=== PATIENT | male | born 1960 | race Caucasian/White ===

== ENCOUNTER 2017-11-14 07:47 | Emergency (ER) | payer MEDICAID ==
[~2017-11-14] VITALS: Ht 167.6 cm; Wt 84.5 kg
[~2017-11-14 07:47] MED LIST: LAC PO; LEVAQUIN LEVA-750 M1 PO; METFORMIN HCL1000 MG PO; MOTRIN600 MG PO; THERAGRAN-M1 TA4 PO; ZES10 PO
[2017-11-14 08:04] VITALS: Ht 167.6 cm; Wt 84.5 kg
[2017-11-14 08:40] VITALS: BP 156/93
== END 2017-11-14 08:40 | disposition home or self-care (01) ==
LOC: ED 07:47
DX: S90.425A Blister (nonthermal), left lesser toe(s), initial encounter (principal); I10 Essential (primary) hypertension; E11.9 Type 2 diabetes mellitus without complications; X58.XXXA Exposure to other specified factors, initial encounter; Y93.89 Activity, other specified; Y92.89 Other specified places as the place of occurrence of the external cause; Y99.8 Other external cause status

== ENCOUNTER 2018-04-20 16:05 | Inpatient (IN) | payer SELFPAY ==
[~2018-04-20] VITALS: Ht 162.6 cm; Wt 72.0 kg
[2018-04-20 16:24] VITALS: Ht 162.6 cm; Wt 72.0 kg
[2018-04-20 17:41] LABS: BASOPHIL % 0.2 % (0-2)
[2018-04-20 17:45] LABS: PLATELET COUNT 706 x10^3mcL (130-400); RED CELL DISTRIBUTION WIDTH 16.5 % (11.5-14.5)
[2018-04-20 17:47] LABS: CALCIUM 8.9 mg/dL (8.5-10.1); CARBON DIOXIDE 26.7 mmol/L (21-32); CREATININE SERUM 1.6 mg/dL (0.7-1.3); POTASSIUM SERUM 4.4 mmol/L (3.5-5.1)
[2018-04-20 17:52] LABS: ALBUMIN 2.1 g/dL (3.4-5.0); BILIRUBIN TOTAL 0.27 mg/dL (0.20-1.00)
[2018-04-20 18:12] LABS: microscopic required? YES; urine erythrocyte TRACE (NEGATIVE)
[2018-04-20] MEDS ORDERED: OMEPRAZOLE20 M4 PO (20:50)
[2018-04-20] MEDS ORDERED: PAROXETINE20 M1 PO (20:51)
[2018-04-20] MEDS ORDERED: SULFAMETH/TRIME1 TA3 PO (20:51)
[2018-04-20 22:05] LABS: MAGNESIUM 1.8 mg/dL (1.8-2.4); PHOSPHOROUS 3.9 mg/dL (2.5-4.9)
[2018-04-20 22:06] LABS: CHOLESTEROL/HDL RATIO 4.7
[2018-04-20 22:14] LABS: FREE T4 1.43 ng/dL (0.76-1.46); FREE THYROXINE INDEX 2.7 ug/dL (1.4-4.5); T4(THYROXINE) 7.2 ug/dL (4.7-13.3)
[2018-04-20 22:20] LABS: T3 TOTAL 0.77 ng/mL
[2018-04-20 22:45] VITALS: BP 122/61
[2018-04-21 01:34] LABS: AMPHETAMINE QUAL UR NONE DETECTED (See below)
[2018-04-21 05:53] VITALS: BP 131/69
[2018-04-21 07:05] LABS: CALCIUM 8.1 mg/dL (8.5-10.1); CREATININE SERUM 1.6 mg/dL (0.7-1.3); POTASSIUM SERUM 4.6 mmol/L (3.5-5.1)
[2018-04-21 08:09] LABS: BASOPHIL % 0.4 % (0-2)
[2018-04-21 08:24] LABS: RED CELL DISTRIBUTION WIDTH 16.9 % (11.5-14.5)
[2018-04-21 09:54] VITALS: BP 133/67
[2018-04-21 11:35] LABS: rbc morphology (normal/abnorm) ABNORMAL (NORMAL)
[2018-04-21 12:14] LABS: PLATELET COUNT 588 x10^3mcL (130-400)
[2018-04-21 12:56] LABS: rbc morphology (normal/abnorm) ABNORMAL (NORMAL)
[2018-04-21 14:52] LABS: BASOPHIL % 0.3 % (0-2)
[2018-04-21 15:01] LABS: RED CELL DISTRIBUTION WIDTH 16.9 % (11.5-14.5)
[2018-04-21 15:38] LABS: PLATELET COUNT 621 x10^3mcL (130-400)
[2018-04-21 16:54] VITALS: BP 136/70
[2018-04-22 05:25] VITALS: BP 147/79
[2018-04-22 06:23] LABS: BASOPHIL % 0.4 % (0-2)
[2018-04-22 06:27] LABS: CALCIUM 8.1 mg/dL (8.5-10.1); CARBON DIOXIDE 24.3 mmol/L (21-32); CHLORIDE SERUM 100 mmol/L (98-107); CREATININE SERUM 1.2 mg/dL (0.7-1.3); GFR1 > 60 mL/min; GLUCOSE SERUM 184 mg/dL (74-106); MAGNESIUM 1.7 mg/dL (1.8-2.4); PHOSPHOROUS 3.2 mg/dL (2.5-4.9); POTASSIUM SERUM 3.9 mmol/L (3.5-5.1); SODIUM SERUM 133 mmol/L (136-145)
[2018-04-22 07:03] LABS: RED CELL DISTRIBUTION WIDTH 17.6 % (11.5-14.5)
[2018-04-22 08:53] LABS: PLATELET COUNT 597 x10^3mcL (130-400)
[2018-04-22 09:40] LABS: IRON 20 ug/dL (65-170); TOTAL IRON BINDING CAPACITY 154 ug/dL (250-450)
[2018-04-22 09:56] LABS: RED BLOOD CELLS 3.11 M/mm3 (4.52-5.90)
[2018-04-22 14:53] LABS: BASOPHIL % 0 % (0-2); RED CELL DISTRIBUTION WIDTH 17.9 % (11.5-14.5)
[2018-04-22 15:02] VITALS: BP 139/71
[2018-04-22 15:44] LABS: ovalocyte/elliptocyte 1+
[2018-04-22 15:45] LABS: rbc morphology (normal/abnorm) ABNORMAL (NORMAL); tear drop cell (dacryocyte) 1+
[2018-04-22 16:57] LABS: PLATELET COUNT 578 x10^3mcL (130-400)
[2018-04-22 18:20] VITALS: BP 137/66
[2018-04-22 19:45] VITALS: BP 127/75
[2018-04-23 04:54] VITALS: BP 132/81
[2018-04-23 08:02] LABS: BILIRUBIN TOTAL 0.3 mg/dL (0.20-1.00); CALCIUM 7.8 mg/dL (8.5-10.1); CARBON DIOXIDE 25.3 mmol/L (21-32); MAGNESIUM 1.5 mg/dL (1.8-2.4); PHOSPHOROUS 3.5 mg/dL (2.5-4.9); POTASSIUM SERUM 4.6 mmol/L (3.5-5.1); TOTAL PROTEIN, SERUM 7.2 g/dL (6.4-8.2)
[2018-04-23 08:03] LABS: ALBUMIN 1.6 g/dL (3.4-5.0)
[2018-04-23 08:24] LABS: BASOPHIL % 0 % (0-2); PLATELET COUNT 561 x10^3mcL (130-400)
[2018-04-23 09:30] VITALS: BP 128/66
[2018-04-23 16:09] LABS: PLATELET COUNT 582 x10^3mcL (130-400); RED CELL DISTRIBUTION WIDTH 17.8 % (11.5-14.5)
[2018-04-23 16:40] LABS: BAND NEUTROPHIL 8 % (0-10); BASOPHIL 0 % (0-2); MONOCYTE 3 % (0-7); SEGMENTED NEUTROPHILS 73 % (37-75); rbc morphology (normal/abnorm) ABNORMAL (NORMAL)
[2018-04-23 16:42] LABS: PLATELET MORPHOLOGY PLATELETS INCREASED
[2018-04-23 20:54] VITALS: BP 111/66
[2018-04-24] VITALS (7 sets, daily range): BP systolic 126–154; BP diastolic 74–80
[2018-04-24 05:48] LABS: BASOPHIL % 0.3 % (0-2)
[2018-04-24 05:51] LABS: BILIRUBIN TOTAL 0.33 mg/dL (0.20-1.00); CALCIUM 7.5 mg/dL (8.5-10.1); CARBON DIOXIDE 23.8 mmol/L (21-32); CREATININE SERUM 2.7 mg/dL (0.7-1.3); MAGNESIUM 1.4 mg/dL (1.8-2.4); PHOSPHOROUS 3.7 mg/dL (2.5-4.9); POTASSIUM SERUM 4.2 mmol/L (3.5-5.1); TOTAL PROTEIN, SERUM 6.6 g/dL (6.4-8.2)
[2018-04-24 05:53] LABS: ALBUMIN 1.5 g/dL (3.4-5.0)
[2018-04-24 06:13] LABS: PLATELET COUNT 445 x10^3mcL (130-400)
[2018-04-24 07:12] LABS: rbc morphology (normal/abnorm) ABNORMAL (NORMAL)
[2018-04-25 00:55] VITALS: BP 148/80
[2018-04-25 04:52] VITALS: BP 156/74
[2018-04-25 07:47] LABS: BASOPHIL % 0.4 % (0-2)
[2018-04-25 07:48] LABS: PLATELET COUNT 448 x10^3mcL (130-400); RED CELL DISTRIBUTION WIDTH 18.8 % (11.5-14.5)
[2018-04-25 07:58] LABS: CARBON DIOXIDE 24.1 mmol/L (21-32); CREATININE SERUM 3.2 mg/dL (0.7-1.3); MAGNESIUM 1.8 mg/dL (1.8-2.4)
[2018-04-25 09:33] VITALS: BP 157/77
[2018-04-25 17:19] LABS: CALCIUM 8.3 mg/dL (8.5-10.1); CARBON DIOXIDE 24.3 mmol/L (21-32); CREATININE SERUM 3.2 mg/dL (0.7-1.3); POTASSIUM SERUM 4.1 mmol/L (3.5-5.1)
[2018-04-25 17:25] LABS: BASOPHIL % 0.5 % (0-2)
[2018-04-25 17:29] LABS: PLATELET COUNT 449 x10^3mcL (130-400); RED CELL DISTRIBUTION WIDTH 18.7 % (11.5-14.5)
[2018-04-25 17:31] VITALS: BP 166/82
[2018-04-25 20:34] VITALS: BP 145/78
[2018-04-26 05:22] VITALS: BP 153/58
[2018-04-26 06:28] LABS: CALCIUM 8.1 mg/dL (8.5-10.1); CARBON DIOXIDE 25.5 mmol/L (21-32); CREATININE SERUM 3.2 mg/dL (0.7-1.3)
[2018-04-26 07:33] LABS: BASOPHIL % 0.2 % (0-2)
[2018-04-26 07:46] LABS: RED CELL DISTRIBUTION WIDTH 17.9 % (11.5-14.5)
[2018-04-26 07:52] LABS: PLATELET COUNT 511 x10^3mcL (130-400)
[2018-04-26 08:53] VITALS: BP 159/81
[2018-04-26 18:43] VITALS: BP 164/81
[2018-04-26 20:57] VITALS: BP 120/75
[2018-04-27 04:42] VITALS: BP 164/84
[2018-04-27 06:55] LABS: BASOPHIL % 0.4 % (0-2)
[2018-04-27 06:57] LABS: CALCIUM 8.1 mg/dL (8.5-10.1); CARBON DIOXIDE 24.7 mmol/L (21-32); CREATININE SERUM 2.7 mg/dL (0.7-1.3); MAGNESIUM 1.7 mg/dL (1.8-2.4); PHOSPHOROUS 3.8 mg/dL (2.5-4.9); POTASSIUM SERUM 3.8 mmol/L (3.5-5.1)
[2018-04-27 07:00] LABS: RED CELL DISTRIBUTION WIDTH 18.8 % (11.5-14.5)
[2018-04-27 07:01] LABS: PLATELET COUNT 475 x10^3mcL (130-400)
[2018-04-27 10:31] VITALS: BP 165/91
[2018-04-27 12:15] VITALS: BP 151/68
[2018-04-27 14:36] VITALS: BP 132/69
[2018-04-27 16:15] VITALS: BP 148/76
[2018-04-27 16:21] LABS: microscopic required? YES; urine erythrocyte TRACE (NEGATIVE)
[2018-04-27 21:22] VITALS: BP 153/74
[2018-04-28 05:46] VITALS: BP 156/78
[2018-04-28 06:06] LABS: BASOPHIL % 0.4 % (0-2)
[2018-04-28 06:32] LABS: ALBUMIN 1.5 g/dL (3.4-5.0); BILIRUBIN TOTAL 0.32 mg/dL (0.20-1.00); CALCIUM 7.7 mg/dL (8.5-10.1); CARBON DIOXIDE 23.7 mmol/L (21-32); CREATININE SERUM 2.5 mg/dL (0.7-1.3); MAGNESIUM 1.6 mg/dL (1.8-2.4); PHOSPHOROUS 3.4 mg/dL (2.5-4.9); POTASSIUM SERUM 3.8 mmol/L (3.5-5.1); TOTAL PROTEIN, SERUM 6.9 g/dL (6.4-8.2)
[2018-04-28 07:11] LABS: PLATELET COUNT 424 x10^3mcL (130-400); RED CELL DISTRIBUTION WIDTH 18.9 % (11.5-14.5)
[2018-04-28 08:54] VITALS: BP 164/82
[2018-04-28 17:12] VITALS: BP 157/74
[2018-04-28 21:10] VITALS: BP 159/75
[2018-04-29 05:39] VITALS: BP 118/79
[2018-04-29 06:18] LABS: BASOPHIL % 0.2 % (0-2)
[2018-04-29 06:40] LABS: PLATELET COUNT 436 x10^3mcL (130-400); RED CELL DISTRIBUTION WIDTH 19.2 % (11.5-14.5)
[2018-04-29 06:46] LABS: CALCIUM 8.2 mg/dL (8.5-10.1); CARBON DIOXIDE 23.6 mmol/L (21-32); CREATININE SERUM 2.2 mg/dL (0.7-1.3); MAGNESIUM 1.7 mg/dL (1.8-2.4); PHOSPHOROUS 3.2 mg/dL (2.5-4.9); POTASSIUM SERUM 3.7 mmol/L (3.5-5.1)
[2018-04-29 08:57] VITALS: BP 147/78
[2018-04-29 17:58] VITALS: BP 164/88
[2018-04-29 20:56] VITALS: BP 167/81
[2018-04-30 05:53] VITALS: BP 168/61
[2018-04-30 06:23] LABS: BILIRUBIN TOTAL 0.29 mg/dL (0.20-1.00); CARBON DIOXIDE 26.5 mmol/L (21-32); CREATININE SERUM 2.1 mg/dL (0.7-1.3); MAGNESIUM 1.8 mg/dL (1.8-2.4); PHOSPHOROUS 3.5 mg/dL (2.5-4.9); POTASSIUM SERUM 3.5 mmol/L (3.5-5.1); TOTAL PROTEIN, SERUM 7.3 g/dL (6.4-8.2)
[2018-04-30 06:52] LABS: ALBUMIN 1.7 g/dL (3.4-5.0)
[2018-04-30 07:12] LABS: BASOPHIL % 0.3 % (0-2)
[2018-04-30 07:14] LABS: PLATELET COUNT 456 x10^3mcL (130-400); RED CELL DISTRIBUTION WIDTH 18.5 % (11.5-14.5)
[2018-04-30 09:18] VITALS: BP 163/84
[2018-04-30 14:10] VITALS: BP 156/62
[2018-04-30 17:46] VITALS: BP 149/76
[2018-04-30 20:25] VITALS: BP 149/80
[2018-05-01 05:01] VITALS: BP 151/80
[2018-05-01 06:33] LABS: ALBUMIN 1.7 g/dL (3.4-5.0); BILIRUBIN TOTAL 0.29 mg/dL (0.20-1.00); CALCIUM 7.9 mg/dL (8.5-10.1); CARBON DIOXIDE 26.9 mmol/L (21-32); MAGNESIUM 1.7 mg/dL (1.8-2.4); PHOSPHOROUS 3.5 mg/dL (2.5-4.9); POTASSIUM SERUM 3.4 mmol/L (3.5-5.1); TOTAL PROTEIN, SERUM 7.2 g/dL (6.4-8.2)
[2018-05-01 08:11] LABS: BASOPHIL % 0.4 % (0-2)
[2018-05-01 08:12] LABS: PLATELET COUNT 496 x10^3mcL (130-400); RED CELL DISTRIBUTION WIDTH 19.4 % (11.5-14.5)
[2018-05-01 09:46] VITALS: BP 156/83
[2018-05-01 18:48] VITALS: BP 149/79
[2018-05-01 20:44] VITALS: BP 146/77
[2018-05-02 05:36] VITALS: BP 163/85
[2018-05-02 06:48] LABS: BASOPHIL % 0.3 % (0-2)
[2018-05-02 07:12] LABS: PLATELET COUNT 525 x10^3mcL (130-400); RED CELL DISTRIBUTION WIDTH 18.8 % (11.5-14.5)
[2018-05-02 07:22] LABS: CALCIUM 8.2 mg/dL (8.5-10.1); CARBON DIOXIDE 26.8 mmol/L (21-32); PHOSPHOROUS 3.5 mg/dL (2.5-4.9); POTASSIUM SERUM 3.4 mmol/L (3.5-5.1)
[2018-05-02 10:00] VITALS: BP 153/82
[2018-05-02 16:24] LABS: microscopic required? YES; urine erythrocyte 1+ (NEGATIVE)
[2018-05-02 17:40] VITALS: BP 140/73
[2018-05-02 21:03] VITALS: BP 129/68
[2018-05-03 05:21] VITALS: BP 149/45
[2018-05-03 07:13] LABS: CALCIUM 8.1 mg/dL (8.5-10.1); CARBON DIOXIDE 27.3 mmol/L (21-32); CREATININE SERUM 2.2 mg/dL (0.7-1.3); MAGNESIUM 1.8 mg/dL (1.8-2.4); PHOSPHOROUS 3.3 mg/dL (2.5-4.9); POTASSIUM SERUM 3.7 mmol/L (3.5-5.1)
[2018-05-03 07:28] LABS: PLATELET COUNT 493 x10^3mcL (130-400); RED CELL DISTRIBUTION WIDTH 19.5 % (11.5-14.5)
[2018-05-03 09:35] VITALS: BP 137/69
[2018-05-03 12:10] LABS: BAND NEUTROPHIL 0 % (0-10); BASOPHIL 0 % (0-2); MONOCYTE 7 % (0-7); SEGMENTED NEUTROPHILS 81 % (37-75)
[2018-05-03 12:11] LABS: PLATELET MORPHOLOGY PLATELETS INCREASED; rbc morphology (normal/abnorm) ABNORMAL (NORMAL); schistocyte (helmet cell) 1+
[2018-05-03 17:42] VITALS: BP 159/85
[2018-05-03 20:52] VITALS: BP 137/74
[2018-05-04 06:04] VITALS: BP 143/79
[2018-05-04 06:52] LABS: PLATELET COUNT 495 x10^3mcL (130-400); RED CELL DISTRIBUTION WIDTH 19.1 % (11.5-14.5)
[2018-05-04 06:56] LABS: CALCIUM 7.6 mg/dL (8.5-10.1); CARBON DIOXIDE 25.3 mmol/L (21-32); CREATININE SERUM 2.1 mg/dL (0.7-1.3); MAGNESIUM 1.6 mg/dL (1.8-2.4); PHOSPHOROUS 3.2 mg/dL (2.5-4.9); POTASSIUM SERUM 3.5 mmol/L (3.5-5.1)
[2018-05-04 08:55] VITALS: BP 126/70
[2018-05-04 11:01] LABS: ATYPICAL LYMPH 2 %; BAND NEUTROPHIL 0 % (0-10); BASOPHIL 0 % (0-2); MONOCYTE 13 % (0-7); PLATELET MORPHOLOGY PLATELETS INCREASED; SEGMENTED NEUTROPHILS 82 % (37-75); rbc morphology (normal/abnorm) ABNORMAL (NORMAL)
[2018-05-04 13:25] LABS: microalbumin:creatinine ratio 67.6 (0.0-30.0)
[2018-05-04 17:28] VITALS: BP 130/70
[2018-05-04 20:43] VITALS: BP 105/58
[2018-05-05 05:44] VITALS: BP 131/72
[2018-05-05 06:39] LABS: RED CELL DISTRIBUTION WIDTH 19.5 % (11.5-14.5)
[2018-05-05 07:12] LABS: CALCIUM 8.1 mg/dL (8.5-10.1); CARBON DIOXIDE 24.2 mmol/L (21-32); CREATININE SERUM 2.2 mg/dL (0.7-1.3); MAGNESIUM 1.8 mg/dL (1.8-2.4); PHOSPHOROUS 3.5 mg/dL (2.5-4.9); POTASSIUM SERUM 3.8 mmol/L (3.5-5.1)
[2018-05-05 08:00] VITALS: BP 130/63
[2018-05-05 12:40] LABS: BAND NEUTROPHIL 3 % (0-10); BASOPHIL 0 % (0-2); MONOCYTE 6 % (0-7); SEGMENTED NEUTROPHILS 80 % (37-75)
[2018-05-05 12:41] LABS: PLATELET MORPHOLOGY PLATELETS INCREASED; rbc morphology (normal/abnorm) ABNORMAL (NORMAL); tear drop cell (dacryocyte) 1+
[2018-05-05 12:53] VITALS: BP 109/60
[2018-05-05 13:55] LABS: PLATELET COUNT 517 x10^3mcL (130-400)
[2018-05-05 16:20] VITALS: BP 119/64
[2018-05-05 20:53] VITALS: BP 132/95
[2018-05-06 04:30] VITALS: BP 128/74
[2018-05-06 07:07] LABS: CALCIUM 7.9 mg/dL (8.5-10.1); CARBON DIOXIDE 26.3 mmol/L (21-32); MAGNESIUM 1.7 mg/dL (1.8-2.4); PHOSPHOROUS 4.1 mg/dL (2.5-4.9); POTASSIUM SERUM 3.8 mmol/L (3.5-5.1)
[2018-05-06 07:35] LABS: RED CELL DISTRIBUTION WIDTH 19.3 % (11.5-14.5)
[2018-05-06 07:36] LABS: PLATELET COUNT 624 x10^3mcL (130-400)
[2018-05-06 08:10] VITALS: BP 128/69
[2018-05-06 10:20] LABS: BAND NEUTROPHIL 11 % (0-10); BASOPHIL 0 % (0-2); MONOCYTE 4 % (0-7); SEGMENTED NEUTROPHILS 65 % (37-75); rbc morphology (normal/abnorm) ABNORMAL (NORMAL)
[2018-05-06 10:21] LABS: PLATELET MORPHOLOGY LARGE PLATELET SEEN
[2018-05-06 12:36] VITALS: BP 126/74
[2018-05-06 16:39] VITALS: BP 137/74
[2018-05-06 20:57] VITALS: BP 127/68
[2018-05-07 05:27] VITALS: BP 153/72
[2018-05-07 07:20] LABS: PLATELET COUNT 590 x10^3mcL (130-400)
[2018-05-07 07:38] LABS: CALCIUM 8.2 mg/dL (8.5-10.1); CARBON DIOXIDE 26.8 mmol/L (21-32); CREATININE SERUM 1.9 mg/dL (0.7-1.3); MAGNESIUM 1.8 mg/dL (1.8-2.4); PHOSPHOROUS 3.5 mg/dL (2.5-4.9); POTASSIUM SERUM 3.9 mmol/L (3.5-5.1)
[2018-05-07 09:07] VITALS: BP 134/73
[2018-05-07 11:39] LABS: BAND NEUTROPHIL 10 % (0-10); BASOPHIL 0 % (0-2); MONOCYTE 7 % (0-7); SEGMENTED NEUTROPHILS 65 % (37-75)
[2018-05-07 11:40] LABS: PLATELET MORPHOLOGY PLATELETS INCREASED; rbc morphology (normal/abnorm) ABNORMAL (NORMAL)
[2018-05-07 16:20] VITALS: BP 120/66
[2018-05-07 21:27] VITALS: BP 132/71
[2018-05-08 05:37] VITALS: BP 128/71
[2018-05-08 06:12] LABS: CARBON DIOXIDE 26.7 mmol/L (21-32); CREATININE SERUM 2.1 mg/dL (0.7-1.3); MAGNESIUM 1.8 mg/dL (1.8-2.4); PHOSPHOROUS 3.8 mg/dL (2.5-4.9); POTASSIUM SERUM 3.9 mmol/L (3.5-5.1)
[2018-05-08 08:04] LABS: PLATELET COUNT 609 x10^3mcL (130-400); RED CELL DISTRIBUTION WIDTH 19.4 % (11.5-14.5)
[2018-05-08 09:07] VITALS: BP 136/77
[2018-05-08 09:40] LABS: BAND NEUTROPHIL 9 % (0-10); BASOPHIL 0 % (0-2); MONOCYTE 8 % (0-7); PLATELET MORPHOLOGY PLATELETS INCREASED; SEGMENTED NEUTROPHILS 63 % (37-75); rbc morphology (normal/abnorm) ABNORMAL (NORMAL)
[2018-05-08] MEDS ORDERED: AUG500 PO (11:21)
[2018-05-08] MEDS ORDERED: LEVAQUIN750 MG PO (11:22)
[2018-05-08 12:44] VITALS: BP 136/77
== END 2018-05-08 14:50 | disposition home or self-care (01) | DRG 239 ==
LOC: ED 16:05 → MU 21:34
PROVIDERS: Anesthesiology; Emergency Medicine; Family Medicine; Internal Medicine; Internal Medicine Nephrology; Nutritionist Nutrition, Education; Surgery
PROC: 0JBR0ZZ Excision of Left Foot Subcutaneous Tissue and Fascia, Open Approach (ICD-10-PCS; 2018-04-21)
PROC: 0FJ44ZZ Inspection of Gallbladder, Percutaneous Endoscopic Approach (ICD-10-PCS; 2018-04-22)
PROC: 0Y6S0Z0 Detachment at Left 2nd Toe, Complete, Open Approach (ICD-10-PCS; 2018-04-22)
PROC: 0Y6N0ZB Detachment at Left Foot, Partial 2nd Ray, Open Approach (ICD-10-PCS; 2018-04-22)
PROC: 0QBP0ZX Excision of Left Metatarsal, Open Approach, Diagnostic (ICD-10-PCS; 2018-04-22)
PROC: 0JBR0ZX Excision of Left Foot Subcutaneous Tissue and Fascia, Open Approach, Diagnostic (ICD-10-PCS; 2018-04-22)
PROC: 0FT40ZZ Resection of Gallbladder, Open Approach (ICD-10-PCS; principal; 2018-04-22 08:30)
PROC: 0Y6N0Z0 Detachment at Left Foot, Complete, Open Approach (ICD-10-PCS; 2018-04-23)
PROC: 30233L1 Transfusion of Nonautologous Fresh Plasma into Peripheral Vein, Percutaneous Approach (ICD-10-PCS; 2018-04-24)
PROC: 30233N1 Transfusion of Nonautologous Red Blood Cells into Peripheral Vein, Percutaneous Approach (ICD-10-PCS; 2018-04-24)
PROC: 30233K1 Transfusion of Nonautologous Frozen Plasma into Peripheral Vein, Percutaneous Approach (ICD-10-PCS; 2018-04-24)
PROC: 0YQNXZZ Repair Left Foot, External Approach (ICD-10-PCS; 2018-04-27)
PROC: 0F798DZ Dilation of Common Bile Duct with Intraluminal Device, Via Natural or Artificial Opening Endoscopic (ICD-10-PCS; 2018-04-30)
PROC: BF101ZZ Fluoroscopy of Bile Ducts using Low Osmolar Contrast (ICD-10-PCS; 2018-04-30)
PROC: 0D9W3ZZ Drainage of Peritoneum, Percutaneous Approach (ICD-10-PCS; 2018-05-07)
PROC: BW41ZZZ Ultrasonography of Abdomen and Pelvis (ICD-10-PCS; 2018-05-07)
DX: E11.52 Type 2 diabetes mellitus with diabetic peripheral angiopathy with gangrene (principal); E43 Unspecified severe protein-calorie malnutrition; N17.0 Acute kidney failure with tubular necrosis; K80.00 Calculus of gallbladder with acute cholecystitis without obstruction; L03.116 Cellulitis of left lower limb; E87.1 Hypo-osmolality and hyponatremia; L02.612 Cutaneous abscess of left foot; L97.528 Non-pressure chronic ulcer of other part of left foot with other specified severity; M86.8X7 Other osteomyelitis, ankle and foot; E46 Unspecified protein-calorie malnutrition; D62 Acute posthemorrhagic anemia; T79.7XXA Traumatic subcutaneous emphysema, initial encounter; E83.42 Hypomagnesemia; E87.6 Hypokalemia; E11.69 Type 2 diabetes mellitus with other specified complication; X58.XXXA Exposure to other specified factors, initial encounter; E11.65 Type 2 diabetes mellitus with hyperglycemia; E11.21 Type 2 diabetes mellitus with diabetic nephropathy; Z96.89 Presence of other specified functional implants; D50.9 Iron deficiency anemia, unspecified; B95.2 Enterococcus as the cause of diseases classified elsewhere; B95.4 Other streptococcus as the cause of diseases classified elsewhere; B95.7 Other staphylococcus as the cause of diseases classified elsewhere; E11.621 Type 2 diabetes mellitus with foot ulcer; D64.9 Anemia, unspecified; Z68.23 Body mass index [BMI] 23.0-23.9, adult; Z87.891 Personal history of nicotine dependence; Z79.84 Long term (current) use of oral hypoglycemic drugs; Z23 Encounter for immunization; Z79.899 Other long term (current) drug therapy; Z79.2 Long term (current) use of antibiotics; Z87.81 Personal history of (healed) traumatic fracture; Z53.31 Laparoscopic surgical procedure converted to open procedure
CPT/HCPCS: 43262; 78226; 82962; 83880; 84439; 90658; 94150; 97110-GP; 97116-GP; 97530-GP; A9537; C1729; C1769; C2625; J0295; J0330; J0690; J1170; J1644; J1885; J1940; J1956; J2001; J2250; J2270; J2405; J2543; J2704; J2710; J2765; J3010; J3370; J3475; J3490; J7030; J7040; J7050; J7120; P9016; P9059; Q0092; Q0163; Q9967

== ENCOUNTER 2018-05-19 16:35 | Emergency (ER) | payer SELFPAY ==
[~2018-05-19 16:35] MED LIST changes: +AUG500 PO; +LEVAQUIN750 MG PO; +OMEPRAZOLE20 M4 PO; +PAROXETINE20 M1 PO; +SULFAMETH/TRIME1 TA3 PO
[2018-05-19 17:47] LABS: BASOPHIL % 0.9 % (0-2)
[2018-05-19 17:49] LABS: PLATELET COUNT 636 x10^3mcL (130-400); RED CELL DISTRIBUTION WIDTH 18.5 % (11.5-14.5)
[2018-05-19 17:56] LABS: CALCIUM 9.3 mg/dL (8.5-10.1); CARBON DIOXIDE 25.1 mmol/L (21-32); CREATININE SERUM 1.9 mg/dL (0.7-1.3); POTASSIUM SERUM 4.5 mmol/L (3.5-5.1)
[2018-05-19 18:00] LABS: BILIRUBIN TOTAL 0.2 mg/dL (0.20-1.00)
[2018-05-19 18:01] LABS: ALBUMIN 2.7 g/dL (3.4-5.0); TOTAL PROTEIN, SERUM 9.9 g/dL (6.4-8.2)
[2018-05-19 18:43] LABS: UA SPECIFIC GRAVITY 1.015 (1.005-1.035); microscopic required? NO; urine erythrocyte NEGATIVE (NEGATIVE)
[2018-05-19 19:06] LABS: AMPHETAMINE QUAL UR NONE DETECTED (See below)
[2018-05-19 19:46] VITALS: BP 136/75
== END 2018-05-19 19:46 | disposition home or self-care (01) ==
LOC: ED 16:35
PROVIDERS: Emergency Medicine
DX: K59.00 Constipation, unspecified (principal); R11.2 Nausea with vomiting, unspecified; D50.9 Iron deficiency anemia, unspecified; E46 Unspecified protein-calorie malnutrition; I10 Essential (primary) hypertension; E11.9 Type 2 diabetes mellitus without complications; Z96.89 Presence of other specified functional implants; Z90.49 Acquired absence of other specified parts of digestive tract; Z98.890 Other specified postprocedural states
CPT/HCPCS: 82962; J1885; J2405

== ENCOUNTER 2018-12-13 12:14 | Emergency (ER) | payer MEDICAID ==
[~2018-12-13] VITALS: Ht 167.6 cm; Wt 71.7 kg
[2018-12-13 12:16] VITALS: Ht 167.6 cm; Wt 71.7 kg
[2018-12-13 12:53] LABS: BASOPHIL % 0.3 % (0-2); PLATELET COUNT 213 x10^3mcL (130-400)
[2018-12-13 13:00] LABS: CALCIUM 8.8 mg/dL (8.5-10.1); CARBON DIOXIDE 21.5 mmol/L (21-32); CREATININE SERUM 2.3 mg/dL (0.7-1.3); POTASSIUM SERUM 5.1 mmol/L (3.5-5.1)
[2018-12-13 13:04] LABS: ALBUMIN 3.7 g/dL (3.4-5.0); BILIRUBIN TOTAL 0.6 mg/dL (0.20-1.00); TOTAL PROTEIN, SERUM 7.6 g/dL (6.4-8.2)
[2018-12-13 13:19] LABS: RED CELL DISTRIBUTION WIDTH 14.7 % (11.5-14.5)
[2018-12-13 14:15] VITALS: BP 153/85
== END 2018-12-13 14:15 | disposition home or self-care (01) ==
LOC: ED 12:14
PROVIDERS: Emergency Medicine
DX: R10.13 Epigastric pain (principal); R11.2 Nausea with vomiting, unspecified; I10 Essential (primary) hypertension; E11.9 Type 2 diabetes mellitus without complications; Z90.49 Acquired absence of other specified parts of digestive tract; Z89.422 Acquired absence of other left toe(s)
CPT/HCPCS: 36415; J1885

== ENCOUNTER 2019-03-12 04:27 | Inpatient (IN) | payer MEDICAID ==
[~2019-03-12] VITALS: Ht 162.6 cm; Wt 65.1 kg
--- NOTE | 2019-03-12 04:50 | NUR ---
PT COMES TO ED WITH C/C MID UPPER QUAD ABD PAIN. PAIN STARTED LAST NIGHT. C/O N/V AND FEVER LIKE SYMPTOMS. PT HAS NOT TAKEN ANY MEDICATION. SON AT BEDSIDE TO TRANSLATE. PT AND SON ARE POOR HISTORIANS. CONNECTED TO MONITOR. DR Levin AT BEDSIDE FOR MSE.
--- NOTE | 2019-03-12 04:54 | NUR ---
DR Levin AWARE PT MEETS SEPSIS CRITERIA. PROTOCOL INITIATED.
--- NOTE | 2019-03-12 05:10 | NUR ---
LAB AT BEDSIDE.
[2019-03-12 05:17] LABS: BASOPHIL % 0.7 % (0-2); PLATELET COUNT 208 x10^3mcL (130-400); RED CELL DISTRIBUTION WIDTH 13.9 % (11.5-14.5)
--- NOTE | 2019-03-12 05:24 | NUR ---
PT HAD VOMITING EPISODE X1 APPROX 50CC YELLOWISH EMESIS.
[2019-03-12 05:25] LABS: CALCIUM 8.7 mg/dL (8.5-10.1); CARBON DIOXIDE 23.7 mmol/L (21-32); CREATININE SERUM 2.1 mg/dL (0.7-1.3); POTASSIUM SERUM 4.7 mmol/L (3.5-5.1); UA SPECIFIC GRAVITY 1.015 (1.005-1.035); microscopic required? YES; urine erythrocyte TRACE (NEGATIVE)
[2019-03-12 05:38] LABS: ALBUMIN 3.9 g/dL (3.4-5.0); BILIRUBIN TOTAL 0.98 mg/dL (0.20-1.00); TOTAL PROTEIN, SERUM 7.5 g/dL (6.4-8.2)
--- NOTE | 2019-03-12 06:13 | NUR ---
PT TAKEN TO CT.
--- NOTE | 2019-03-12 06:25 | NUR ---
SPOKE WITH PHARMACY. OKAY TO GIVE ABX WITH CREAT 2.1.
--- NOTE | 2019-03-12 06:53 | NUR ---
SPOKE WITH DR PATEL REGARDING CARDIZEM IVP. PT CM READING ST HR 113. REPEAT EKG TO BE ORDERED PRIOR TO GIVING CARDIZEM 10MG IVP. WILL FOLLOW UP WITH DR PATEL BEFORE GIVING MEDICATION.
--- NOTE | 2019-03-12 07:29 | NUR ---
PT RESTING WELL AT THIS TIME, WAITING ON ULTRASOUND AND CT RESULTS TO COMPLETE; PT DANIKA IV FLUIDS WELL, REMAINS WITH SINUS TACHYCARDIA ON MONITOR AND REPEAT EKG SHOWED SAME RESULT; CARDIZEM CANCELLED, ADDITIONAL ORDERS REC'D
--- NOTE | 2019-03-12 08:35 | NUR ---
PT REMAINS SLEEPING WELL, NO FURTHER EPISODED OF N/V NOTED; WAITING ON FURTHER ORDERS FROM HOSPITALIST FOR ADMISSION; PER PROVIDER, PT HAS ABNORMAL FINDING ON CT; PT TO BE ADMITED
--- NOTE | 2019-03-12 09:35 | NUR ---
DR. PATEL NOTIFIED THAT PT MEETS SEVERE SEPSIS (SIRS + CREATININE 2.1).
--- NOTE | 2019-03-12 09:39 | NUR ---
Total fluid resuscitation amount ordered for patient is 2500 mls. At time of admission/transfer to TELEMETRY , 2500 mls have infused. Last BP was 129/68 and LORETTA WINKLER is aware that BP was already reassessed after fluid infusion completed.
--- NOTE | 2019-03-12 09:45 | NUR ---
ADMIT ORDERS REC'D; FAMILY UPDATED; PT CONTINUES TO REST, NO N/V NOTED
[2019-03-12 09:56] LABS: CHOLESTEROL/HDL RATIO 3.4; MAGNESIUM 1.9 mg/dL (1.8-2.4)
--- NOTE | 2019-03-12 10:02 | NUR ---
REPORT GIVEN; PT PREP FOR TRANSPORT
[2019-03-12 11:08] VITALS: BP 114/63
--- NOTE | 2019-03-12 12:58 | NUR ---
AT 1015 - RECEIVED PATIENT FROM NIGHT NURSE. SETTLED IN ROOM, ORIENTED TO SURROUNDINGS AND PLACED ON CARDIAC MONITORING TELE # 12. ADMITTED WITH C/O NAUSEA, VOMITING AND CHILLS. DX OF SEPSIS AND PANCREATITIS. HISTORY OBTAINED FROM PATIENT AND SON. REQUESTED PATIENT'S SON TO BRING IN PATIENT'S HOME MEDS. AT 1025 - SEEN BY DR COLMENARES AND MEDICAL TEAM DOCTORS. SPOKE WITH PATIENT USING MANAGER BUILDING. AT 1045 - IV INFUSION OF NS COMMENCED AT 100 ML/HR. AT 1215 - RESTING QUIETLY. NO C/O PAIN. REMAINS NPO. SCDS APPLIED TO BLE.
[2019-03-12 17:17] VITALS: BP 121/63
--- NOTE | 2019-03-12 17:27 | NUR ---
AT 1530 - COMMENCED ON IV VANCOMYCIN. FIRST DOSE IN PROGRESS. AT 1700 - RECEIVED NEW ORDERS INCLUDING ORDER FOR URINARY CATHETER INSERTION FOR URINE OUTPUT MONITORING. IV INFUSION CHANGED TO LACTATED RINGERS AT 150 ML/HR. AT 1725 - MANDEL CATHETER INSERTED BY LORETTA COOPER. LEFT ON FREE DRAINAGE. URINE SENT TO LAB FOR CULTURE.
[2019-03-12 18:10] LABS: AMPHETAMINE QUAL UR NONE DETECTED (See below)
--- NOTE | 2019-03-12 19:09 | NUR ---
RESTING QUIETLY. NO C/O PAIN. 600 ML URINE OUTPUT OF AC URINE VIA MANDEL SINCE INSERTION. REMAINS NPO. ENDORSING CARE TO NIGHT NURSE.
--- NOTE | 2019-03-12 19:20 | NUR ---
PT RESTING IN BED WITH NO ACUTE DISTRESS AND TWO FAMILY MEMBERS AT BEDSIDE. ASSESSMENT PERFORMED AT THIS TIME, PT IS A/OX4 WITH NO COMPLAINTS OF WELCH OR DIZZINESS, PT DENIES PAIN OR SOB, NO NAUSEA OR VOMITTING AT THIS TIME, NO RECORD OF HOME MEDICATIONS HAS BEEN BROUGHT IN SO FAR AND FAMILY INFORMED THAT LIST OF MEDICATIONS IS NEEDED, FAMILY MEMBER STATED THAT HE WOULD BRING THE PILL BOTTLES IN IN THE MORNING OF 03/13. ALL NEEDS ATTENDED TO AT THIS TIME, SAFETY PRECAUTIONS IN PLACE WILL CONTINUE TO MONITOR.
[2019-03-12 20:26] VITALS: BP 132/62
--- NOTE | 2019-03-12 21:15 | NUR ---
PT RESTING IN BED WITH NO ACUTE DISTRESS, PTS TWO FAMILY MEMBERS LEAVING FOR THE NIGHT, PT DENIES PAIN AT THIS TIME, ALL NEEDS ATTENDED TO, SAFETY PRECAUTIONS IN PLACE WILL CONTINUE TO MONITOR.
--- NOTE | 2019-03-13 00:05 | NUR ---
PT RESTING IN BED WITH NO ACUTE DISTRESS NOTED AT THIS TIME, RESPIRATIONS EVEN AND UNLABORED, NO SIGNS OF PAIN AT THIS TIME, SAFETY PRECAUTIONS IN PLACE, WILL CONTINUE TO MONITOR
--- NOTE | 2019-03-13 02:48 | NUR ---
PT RESTING IN BED WITH NO ACUTE DISTRESS, NO SIGNS OF PAIN, RESPIRATIONS EVEN AND UNLABORED, SAFETY PRECAUTIONS IN PLACE, WILL CONTINUE TO MONITOR
--- NOTE | 2019-03-13 05:11 | NUR ---
PT RESTED THROUGH THE EVENING WITH NO ACUTE DISTRESS, PT DENIED ANY PAIN THROUGH SHIFT, PT HAD NO EPISODEDS OF SOB, ABD DISCOMFORT, OR NAUSEA/VOMITTING. SAFETY PRECAUTIONS WERE MAINTAINED THROUGHT THE NIGHT, ALL NEEDS ATTENDED TO, WILL CONTINUE TO MONITOR AND ENDORSE CARE
[2019-03-13 05:58] VITALS: BP 137/64
[2019-03-13 06:39] LABS: BILIRUBIN TOTAL 1.68 mg/dL (0.20-1.00); CALCIUM 7.8 mg/dL (8.5-10.1); CARBON DIOXIDE 22.7 mmol/L (21-32); CREATININE SERUM 1.6 mg/dL (0.7-1.3); MAGNESIUM 2.1 mg/dL (1.8-2.4); PHOSPHOROUS 3.2 mg/dL (2.5-4.9); POTASSIUM SERUM 4.3 mmol/L (3.5-5.1); TOTAL PROTEIN, SERUM 6.3 g/dL (6.4-8.2)
[2019-03-13 06:40] LABS: ALBUMIN 2.9 g/dL (3.4-5.0)
[2019-03-13 06:43] LABS: BASOPHIL % 0.1 % (0-2); PLATELET COUNT 194 x10^3mcL (130-400); RED CELL DISTRIBUTION WIDTH 14.4 % (11.5-14.5)
--- NOTE | 2019-03-13 07:50 | NUR ---
AT 0730 - RECEIVED PATIENT FROM NIGHT NURSE. AWAKE, ALERT AND ORIENTED. REPROTS FEELING BETTER TODAY. ABDOMEN SOFT WITH ACTIVE BOWEL SOUNDS. NO NAUSEA, NO C/O ABDOMINAL PAIN. REMAINS NPO. IV INFUSING LR AT 150 ML/HR. MANDEL CATHETER DRAINING AC URINE. GOOD OUTPUT.
--- NOTE | 2019-03-13 10:33 | NUR ---
AT 0950 - SEEN BY DR COLMENARES DURING MORNING ROUNDS. PLAN FOR POSSIBLE PROCEDURE TODAY OR TOMORROW.
--- NOTE | 2019-03-13 14:39 | NUR ---
SEEN BY DR EATON. NEW ORDERS RECEIVED. PATIENT FOR ERCP WITH [facility] TOMORROW. MAY HAVE CLEAR LIQUID DIET TODAY. IV INFUSION REDUCED TO 100 ML/HR. 2 SONS AT BEDSIDE.
--- NOTE | 2019-03-13 16:39 | NUR ---
USING [employer] M[employer]AGE FIELD INSPECTOR ID # [id number], EXPLAINED ERCP PROCEDURE AND EXPECTATIONS TO PATIENT. PATIENT SIGNED CONSENT FOR PROCEDURE. TOLERATING CLEAR LIQUID DIET.
[2019-03-13 16:45] VITALS: BP 156/82
--- NOTE | 2019-03-13 18:47 | NUR ---
AWAKE, ALERT AND ORIENTED. VSS. AFEBRILE. IV INFUSING LR AT 100 ML/HR. TOLERATING CLEAR LIQUIDS PO. NPO AFTER MIDNIGHT. GOOD URINE OUTPUT VIA MANDEL. WILL ENDORSE CARE TO NIGHT NURSE.
--- NOTE | 2019-03-13 19:20 | NUR ---
REC'D PT FROM DAY NURSE. PT RESTING IN BED. AAOX4, SPEECH CLEAR, FOLLOWS COMMANDS. TELE 12. DENIES CP, DIZZINESS, OR PALPITATIONS. DENIES RESP DISTRESS OR SOB. BREATHING EVEN/UNLABORED ON RA. NO EDEMA NOTED. ABD SOFT/ROUND/NONTENDER. MANDEL DRAINING YELLOW URINE TO GRAVITY. AMBULATORY. L PARTIAL FOOT AMPUTATION. SKIN INTACT. PLAN FOR ERCP TOMORROW. NPO AFTER MN, PT VERBALIZED UNDERSTANDING. IV TO RAC PATENT AND INFUSING, SITE WNL. CALL LIGHT WITHIN REACH, BED AT LOWEST POSITION. WILL CONTINUE TO MONITOR.
[2019-03-13 20:47] VITALS: BP 143/61
--- NOTE | 2019-03-14 01:02 | NUR ---
PT RESTING IN BED WITH EYES CLOSED. LAYING ON L SIDE. NO SIGNS OF DISTRESS NOTED. BREATHING EVEN/UNLABORED ON RA. CALL LIGHT WITHIN REACH, BED AT LOWEST POSITION. WILL CONTINUE TO MONITOR.
[2019-03-14 04:40] VITALS: BP 159/75
--- NOTE | 2019-03-14 05:56 | NUR ---
PT AWAKE AND RESTING IN BED. REPORTS MILD ABD PAIN AND MILD NAUSEA, NO VOMITING. ZOFRAN AND TYLENOL GIVEN PER ORDER. MANDEL CARE PROVIDED. BREATHING EVEN/UNLABORED ON RA. PLAN FOR ERCP TODAY. CHECK LIST IN PROGRESS. NPO SINCE MN. CALL LIGHT WITHIN REACH, BED AT LOWEST POSITION. WILL ENDORSE TO DAY NURSE.
[2019-03-14 06:47] LABS: BASOPHIL % 0.3 % (0-2); PLATELET COUNT 181 x10^3mcL (130-400); RED CELL DISTRIBUTION WIDTH 13.9 % (11.5-14.5)
--- NOTE | 2019-03-14 07:15 | NUR ---
RECEIVED PT FROM MAXWELL RN. PT AA/OX4. SPEAKS ARABIC. NO S/S OF ACUTE DISTRESS. NO COMPLAINT OF PAIN. NO ABD. PAIN AT THIS TIME. NO N/V/D. NO SOB ON ROOM AIR. REPORTS BM X1 THIS AM. CALM/COOPERATIVE. NO CHEST PAIN. IV WNL, IV FLUIDS FLOWING. BED IN LOW POSITION. CALL LIGHT WITHIN REACH. WILL CONTINUE TO MONITOR.
[2019-03-14 07:24] LABS: CALCIUM 7.5 mg/dL (8.5-10.1); CARBON DIOXIDE 24.4 mmol/L (21-32); CHLORIDE SERUM 110 mmol/L (98-107); CREATININE SERUM 1.3 mg/dL (0.7-1.3); GFR1 > 60 mL/min; GLUCOSE SERUM 141 mg/dL (74-106); MAGNESIUM 1.7 mg/dL (1.8-2.4); PHOSPHOROUS 2.6 mg/dL (2.5-4.9); POTASSIUM SERUM 4.1 mmol/L (3.5-5.1); SODIUM SERUM 142 mmol/L (136-145)
[2019-03-14 07:51] VITALS: BP 164/74
--- NOTE | 2019-03-14 08:42 | NUR ---
PT TAKEN TO OR BY LORETTA JSAON. PT AA/OX4. NO S/S OF ACUTE DISTRESS. NO SOB ON ROOM AIR. IV SALINE LOCKED. NO SOB ON ROOM AIR. NO CHEST PAIN. NO ABD. PAIN AT THIS TIME. NO N/V. CALM/COOPERATIVE. ENDORSED TO FISHER LAMPARA NETLORETTA SCALES. VS STABLE. TAKEN BY BARBARA.
[2019-03-14 10:17] LABS: BILIRUBIN DIRECT 0.23 mg/dL (0.0-0.2); BILIRUBIN TOTAL 0.4 mg/dL (0.20-1.00)
[2019-03-14 10:20] LABS: ALBUMIN 2.7 g/dL (3.4-5.0)
[2019-03-14 13:07] VITALS: BP 135/64
--- NOTE | 2019-03-14 13:20 | NUR ---
LATE ENTRY: PT BACK FROM PROCEDURE AT 1307. AA/OX4. SPEAKS QATARI. SPEECH CLEAR. NO S/S OF ACUTE DISTRESS. NO SOB ON ROOM AIR. NO CHEST PAIN. NSR ON TELE. VS STABLE: BP 135/64, HR 80, TEMP 98.4F, O2 SAT 95% ON ROOM AIR, RR 14. CALM/COOPERATIVE. DENIES ABD PAIN. NO N/V/D. IV WNL TO RFA, IV FLUIDS FLOWING. BLOOD SUGAR 144. NO WELCH. NO DIZZINESS. SDCS IN PLACE. MANDEL IN TACT DRAINING TO GRAVITY. PER PAINT MIXER MACHINELORETTA SCALES OUTPUT 700CC. BED IN LOW POSITION. CALL LIGHT WITHIN REACH. WILL CONTINUE TO MONITOR.
[2019-03-14 16:32] VITALS: BP 148/67
--- NOTE | 2019-03-14 17:18 | NUR ---
Discount pharmacy card and list to low cost medical clinics given to patient by Ramy Medina.
--- NOTE | 2019-03-14 20:00 | NUR ---
RECEIVED PT IN BED, A/O X4 . DENIES HEADACHE/DIZZINESS. RESP. EVEN AND UNLABORED. ON ROOM AIR, LUNG SOUNDS CLEAR BILAT. NO ACUTE DISTRESS NOTED. AFEBRILE AND VITAL SIGNS STABLE. SR ON THE MONITOR, DENIES CHEST PAIN OR ANY DISCOMFORT AT THIS TIME. ABD. SOFT, NON DISTENDED, BS ACTIVE, NO N/V NOTED. IVF, D5NS AT 70ML/HR, INTACT AND INFUSING VIA RAC, SITE CLEAR. MANDEL CATH INTACT AND DRAINING YELLOW COLOR URINE. ASSISTED WITH HS CARE. CALL LIGHT WITHIN REACH. WILL CONTINUE TO MONITOR.
[2019-03-14 20:32] VITALS: BP 154/66
--- NOTE | 2019-03-15 01:09 | NUR ---
RESTING IN BED, WITH EYES CLOSED, APPEARS ASLEEP, EASILY AROUSABLE. RESP. EVEN AND UNLABORED. NO ACUTE DISTRESS NOTED.CALL LIGHT WITHIN REACH. WILL CONTINUE TO MONITOR.
[2019-03-15 06:08] VITALS: BP 152/58
--- NOTE | 2019-03-15 06:39 | NUR ---
IV SITE LEAKING, DISCONT. NEW IV SITE RESTARTED ON RT HAND WITH #22G ANGIO. IVF INFUISNG AT THIS TIME. AFEBRILE AND VITAL SIGNS STABLE. RESP. EVEN AND UNLABORED. NO ACUTE DISTRESS NOTED. DENIES CHEST PAIN OR ANY DISCOMFORT AT THIS TIME. MANDEL CATH INTACT AND PATENT. SLEPT WELL. DUE MEDS GIVEN ORDERED, DANIKA. WELL. WILL ENDORSE TO INCOMING NURSE.
--- NOTE | 2019-03-15 07:10 | NUR ---
RECEIVED PT FROM MAXWELL RN. PT AA/OX4. SPEAKS BAHRAINI. NO S/S OF ACUTE DISTRESS. NO SOB ON ROOM AIR. DENIES ABD. PAIN. PASSING GAS. NO ABD. DENIES N/V AT THIS TIME. 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 PT CALM/COOPERATIVE. SCDS IN PLACE. HX PREVIOUS AMPUTATION NOTED TO LLE TOES, SKIN WARM, DRY, INTACT. NO COMPLAINT OF CHEST PAIN. NSR ON TELE 12, HR 75. MANDEL IN TACT, DRAINING CLEAR/YELLOW URINE. IV WNL TO RH, PATENT AND FLUSHES WELL. IV FLUIDS FLOWING. BED IN LOW POSITION. CALL LIGHT WITHIN REACH. INSTRUCTED TO USE CALL LIGHT TO CALL FOR ASSISTANCE PRN. VERBALIZED UNDERSTANDING. WILL CONTINUE TO MONITOR.
[2019-03-15 07:33] LABS: ALBUMIN 2.8 g/dL (3.4-5.0); ALKALINE PHOSPHATASE 177 U/L (46-116); ALT/SGPT 124 U/L (16-63); AST/SGOT 29 U/L (15-37); CALCIUM 7.7 mg/dL (8.5-10.1); CARBON DIOXIDE 23.9 mmol/L (21-32); CHLORIDE SERUM 108 mmol/L (98-107); CREATININE SERUM 1.3 mg/dL (0.7-1.3); GFR1 > 60 mL/min; GLUCOSE SERUM 125 mg/dL (74-106); LIPASE 230 IU/L (73-393); MAGNESIUM 1.7 mg/dL (1.8-2.4); PHOSPHOROUS 3.5 mg/dL (2.5-4.9); SODIUM SERUM 142 mmol/L (136-145); TOTAL PROTEIN, SERUM 6.3 g/dL (6.4-8.2)
[2019-03-15 08:30] VITALS: BP 136/55
[2019-03-15 08:50] LABS: PLATELET COUNT 190 x10^3mcL (130-400); RED CELL DISTRIBUTION WIDTH 14.3 % (11.5-14.5)
[2019-03-15 08:55] LABS: BASOPHIL % 2.1 % (0-2)
--- NOTE | 2019-03-15 11:13 | NUR ---
PT LAYING IN BED. AA/OX4. NO COMPLAINT OF PAIN. NO SOB ON ROOM AIR. BLADDER TRAINING WITH MANDEL STARTED. PT EDUCATED ON BLADDER TRAINING WITH MANDEL, WELL SOON, PT VERBALIZED UNDERSTANDING. NO COMPLAINT OF PAIN. NO ABD. PAIN. NO N/V/D. NO CHEST PAIN. BED IN LOW POSITION. CALL LIGHT WITHIN REACH. WILL CONTINUE TO MONITOR.
[2019-03-15 13:15] VITALS: BP 159/69
--- NOTE | 2019-03-15 15:13 | NUR ---
BLADDER TRAINING COMPLETE. MANDEL REMOVED PER PHYSICIAN ORDER BY [facility] ROTHMAN, SUPERVISED BY INSTRUCTOR LORETTA SHEN. URINE OUTPUT FROM MANDEL 1900CC, URINE CLEAR/YELLOW. INSTRUCTED TO USE URINAL FOR I/O MONITORING, PT VERBALIZED UNDERSTANDING. PT GIVEN FIRST BOTTLE OF SURPREP ORDERED BY PHYSICIAN, SEE MAR. WILL FOLLOW WITH ONE PITCHER OF WATER. WILL ENDORSE SECOND BOTTLE TO NOC SHIFT RN/BUTCHER ALL ROUND. PT AA/OX4. NO SOB ON ROOM AIR. NO CHEST PAIN. CALM/COOPERATIVE. IV WNL TO RH, PATENT AND FLUSHES WELL. IV FLUIDS FLOWING. BED IN LOW POSITION. CALL LIGHT WITHIN REACH. WILL CONTINUE TO MONITOR.
[2019-03-15 17:28] VITALS: BP 171/79
[2019-03-15 18:40] VITALS: BP 157/65
--- NOTE | 2019-03-15 18:41 | NUR ---
PT LAYING IN BED. AA/OX4. DENIES ABD. PAIN. NO CHEST PAIN. NO SOB ON ROOM AIR. BP 157/65. DENIES WELCH. NO DIZZINESS. NO N/V. NO TREMORS. VOIDING WITH URINAL. OUTPUT 400CC FROM URINAL. DENIES PAIN WITH URINATION. IV WNL TO RH, NO REDNESS, NO SWELLING, NO INFILTRATION. PT CALM/COOPERATIVE. VISITOR AT BEDSIDE. BED IN LOW POSITION. CALL LIGHT WITHIN REACH. WILL ENDORSE TO ONCOMING SHIFT.
--- NOTE | 2019-03-15 19:42 | NUR ---
PT CURRENTLY RESTING IN BED, NO ACUTE DISTRESS. A/O X4. TELE #12 SHOWING SINUS RHYTHM, DENIES CHEST PAIN. PULSES PALPABLE IN ALL EXTREMITIES, NO EDEMA NOTED. LUNG SOUNDS CTA BILATERALLY, DENIES SOB. BOWEL SOUNDS ACTIVE, LAST BM 03/15/19, WATERY STOOLS DUE TO BOWEL PREP. VOIDING WELL. AMBULATORY. SKIN INTACT. IV PATENT AND INTACT. BED IN LOWEST POSITION, SIDE RAILS UP X2, CALL LIGHT WITHIN REACH. WILL CONTINUE TO MONITOR.
[2019-03-15 20:21] VITALS: BP 145/67
--- NOTE | 2019-03-16 00:17 | NUR ---
PT CURRENTLY RESTING IN BED, NO ACUTE DISTRESS. WILL CONTINUE TO MONITOR.
[2019-03-16 05:55] VITALS: BP 150/65
--- NOTE | 2019-03-16 06:11 | NUR ---
PT SLEPT PERIODICALLY THROUGHOUT NIGHT, NO ACUTE DISTRESS. ALL NEEDS MET AND ATTENDED TO. NO SIGNIFICANT CHANGES. IV PATENT AND INTACT. BED IN LOWEST POSITION, SIDE RAILS UP X2, CALL LIGHT WITHIN REACH. WILL ENDORSE CARE TO ONCOMING NURSE.
--- NOTE | 2019-03-16 07:10 | NUR ---
RECEIVED REPORT FROM KENTRELL BURGOS, PT IN BED IN NO ACUTE DISTRESS
--- NOTE | 2019-03-16 07:15 | NUR ---
PT IN BED, IN NO ACUTE DISTRESS, DENIED CP/PALPITATION/WELCH, DENIED N/D, VERBAL, MALAY, ABLE TO MAKE NEEDS KNOWN, AXOX4, NO FACIAL DROOP/SLURRED SPEECH, RESP EVEN, NO SOB/COUGH, RA, LUNG CTA, CHEST RISE SYMMETRIACLLY, TELE #12, NSR, ABD SOFT AND NON-TENDER TO TOUCH, BS ACTIVE X 4, AMBULATORY, CONTINENT, PALP PULSES, CAP REFILL < 3S, IV PATENT AND INFUSING WELL, DRESSIGN CDI, SEE SKIN ASSESSMENT, ALL NEEDS ADDRESSED AT THSI TIME, SAFETY PROTOCOL FOLLOWED, CONTINUE TO MONITOR
--- NOTE | 2019-03-16 08:45 | NUR ---
AM MED GIVEN PER MD ORDER VIA EMAR, TOLERATED WELL, NO ASE NOTED AT THIS TIME, EDUCATION R/T SAFETY, MED AND ASE GIVEN TO PT, VERBALLY UNDERSTANDING, ALL NEEDS ADDRESSED AT THIS TIME, CONTINUE TO MONITOR
--- NOTE | 2019-03-16 08:57 | NUR ---
PT TRANSFERED TO [facility] PER NECK BAND OPERATOR BEATRIZ HENRIQUEZ ORDER, TELE #12 REMOVED AND RETURNED TO [facility], PT SLEEPING IN BED IN NO ACUTE DISTRESS, DENIED CP/PALPITATION AT THIS TIMEM MADE AWARE OF COLONOSCOPY SCHEDULED AT 11AM, IV INFUSING WELL, CONTINUE TO MONITOR AND F/U
[2019-03-16 09:07] VITALS: BP 174/83
--- NOTE | 2019-03-16 09:57 | NUR ---
REPORT GIVEN TO GI RETREAD TECHNICIAN, NO FURTHER CONCERN NEEDED AT THIS TIME, SAID WILL P/U PT IN 1 HR, PT MADE AWARE, VERBALLY UNDERSTANDING
--- NOTE | 2019-03-16 11:20 | NUR ---
PT WENT FOR COLONOSCOPY, ASSISTED BY 2 GI NUT FORMER, PT LEFT IN NO ACUTE DISTRESS, FAMILY WAITING FOR PT IN WAITING ROOM
--- NOTE | 2019-03-16 12:31 | NUR ---
PT BACK FROM COLONOSCOPY, AXOX4, VERBAL, TOGOLESE, DENIED CP/PALPITATION/WELCH, DENIED N/V, RESP EVEN, NO SOB, RA, CHEST RISE SYMMETRICALLY, PALP PULSES, CAP REFILL < 3S, IV PATENT AND INFUSING WELL, NO ACUTE DISTRESS NOTED, V/S: 98.4, 167/76 (89), 74, 18, 0/10, 100% AT RA, FAMILY AT BEDSIDE, FAMILY MADE AWARE OF DC HOME ORDER TODAY, SAID WILL P/U PT AFTER DINNDER AT 1930, CHARGE NURSE CHRISTELLE BARAJAS AWARE
[2019-03-16 12:36] VITALS: BP 167/76
[2019-03-16 12:49] VITALS: BP 154/76
--- NOTE | 2019-03-16 13:57 | NUR ---
JOSE HENRIQUEZ MADE AWARE OF TODAY LAB RESULT, MAG LEVEL NOTED AT 1.7, NEW ORDER OBTAINED, PT AND FAMILY MADE AWARE, WILL GIVE SCHEDULED
--- NOTE | 2019-03-16 15:57 | NUR ---
PT SLEEPING IN BED, IN NO ACUTE DISTRESS, RESP EVEN, NO SOB/COUGH, CHEST RISE SYMMETRICALLY, FAMILY AT BEDSIDE
[2019-03-16 16:38] VITALS: BP 139/64
--- NOTE | 2019-03-16 17:22 | NUR ---
DC PAPER SIGNED AND KEPT IN CHART, PIC OF COLONOSCOPY GIVEN TO PT IN DC PACKAGE, EDUCATION R/T MED, CONDITION AND ASE GIVEN TO PT AND FAMILY AT BEDSIDE, VERBALLY UNDERSTANDING, IV REMOVED, IV CATH TIP INTACT, NO ACTIVE BLEEDING NOTED, PT DENIED CP/PALPITATION/WELCH, RESP EVEN, NO SOB/COUGH, PT IN NO ACUTE DISTRESS, PT JOSE DE JESUS HAVE DINNER, FAMILY WILL DRIVE PT HOME AFTER DINNER, PT ASSISTED TO LOBBY BY NURSING STAFFS. PT MADE AWARE IT'S HIS RESPONSIBILITY TO F/U W/ PCP 3-4 DAYS AFTER DC HOME, VERBALLY UDNERSTANDING, PT LEAVES IN NO ACUTE DISTRESS
== END 2019-03-16 17:45 | disposition home or self-care (01) ==
LOC: ED 04:27 → DU 09:16 → MU 03-16 13:20
PROVIDERS: Emergency Medicine; Internal Medicine Gastroenterology; ADMIT Internal Medicine
PROC: 0FPB8DZ Removal of Intraluminal Device from Hepatobiliary Duct, Via Natural or Artificial Opening Endoscopic (ICD-10-PCS; principal; 2019-03-14 09:00)
PROC: 0FC98ZZ Extirpation of Matter from Common Bile Duct, Via Natural or Artificial Opening Endoscopic (ICD-10-PCS; 2019-03-14 09:00)
PROC: 0DJD8ZZ Inspection of Lower Intestinal Tract, Via Natural or Artificial Opening Endoscopic (ICD-10-PCS; 2019-03-16)
DX: K80.30 Calculus of bile duct with cholangitis, unspecified, without obstruction (principal); N17.0 Acute kidney failure with tubular necrosis; K85.10 Biliary acute pancreatitis without necrosis or infection; E11.22 Type 2 diabetes mellitus with diabetic chronic kidney disease; N18.3 Chronic kidney disease, stage 3 (moderate); T85.590A Other mechanical complication of bile duct prosthesis, initial encounter; I12.9 Hypertensive chronic kidney disease with stage 1 through stage 4 chronic kidney disease, or unspecified chronic kidney disease; K64.8 Other hemorrhoids; K57.30 Diverticulosis of large intestine without perforation or abscess without bleeding; I48.0 Paroxysmal atrial fibrillation; F32.9 Major depressive disorder, single episode, unspecified; Z89.422 Acquired absence of other left toe(s); Z79.84 Long term (current) use of oral hypoglycemic drugs
CPT/HCPCS: 43260; 45378; 82962; C1769; G0378; J0696; J1100; J1200; J1610; J2250; J2310; J2405; J3010; J3370; J3475; J3490; J7030; J7042; J7060; J7120; Q0092; Q9967

== ENCOUNTER 2020-01-11 17:09 | Emergency (ER) | payer SELFPAY ==
[~2020-01-11] VITALS: Ht 170.2 cm; Wt 84.8 kg
[2020-01-11 17:09] VITALS: Ht 170.2 cm; Wt 84.8 kg
[2020-01-11 18:45] VITALS: BP 121/72
== END 2020-01-11 18:45 | disposition home or self-care (01) ==
LOC: ED 17:09
DX: U07.1 COVID-19 (principal); B34.9 Viral infection, unspecified; I10 Essential (primary) hypertension; E11.9 Type 2 diabetes mellitus without complications; Z90.49 Acquired absence of other specified parts of digestive tract
CPT/HCPCS: U0003-CS

== ENCOUNTER 2020-07-06 08:37 | Emergency (ER) | payer SELFPAY ==
[~2020-07-06] VITALS: Ht 170.2 cm; Wt 54.4 kg
[~2020-07-06 08:37] MED LIST changes: +BACTRIM DS1 TAB PO; +LEVAQUIN500 M1 PO
[2020-07-06 08:59] VITALS: Ht 170.2 cm; Wt 54.4 kg
[2020-07-06 09:44] LABS: BASOPHIL % 0.4 % (0.2-1.5); PLATELET COUNT 222 x10^3mcL (152-348)
[2020-07-06 10:11] LABS: CALCIUM 8.7 mg/dL (8.5-10.1); CARBON DIOXIDE 24.4 mmol/L (21-32); CREATININE SERUM 1.9 mg/dL (0.7-1.3)
[2020-07-06 10:17] LABS: BILIRUBIN TOTAL 0.6 mg/dL (0.20-1.00); TOTAL PROTEIN, SERUM 7.3 g/dL (6.4-8.2)
[2020-07-06 10:19] LABS: ALBUMIN 3.3 g/dL (3.4-5.0)
[2020-07-06 10:35] LABS: RED CELL DISTRIBUTION WIDTH 15.2 % (12.1-16.2)
[2020-07-06 17:26] VITALS: BP 134/71
== END 2020-07-06 13:52 | disposition home or self-care (01) ==
LOC: ED 08:37
PROVIDERS: Emergency Medicine
DX: K29.00 Acute gastritis without bleeding (principal); N39.0 Urinary tract infection, site not specified; I10 Essential (primary) hypertension; E11.9 Type 2 diabetes mellitus without complications; Z90.49 Acquired absence of other specified parts of digestive tract